=== PATIENT | female | born 1975 | race Caucasian/White ===

== ENCOUNTER 2016-08-04 12:36 | Emergency (ER) | payer OTHER ==
[2016-08-04 13:28] LABS: BILIRUBIN NEGATIVE (NEGATIVE); BLOOD NEGATIVE Ery/uL (NEGATIVE); CLARITY CLEAR (CLEAR); COLOR YELLOW (YELLOW); GLUCOSE (U) NORMAL (NORMAL); KETONE (U) NEGATIVE (NEGATIVE); LEUKOCYTES NEGATIVE Leu/uL (NEGATIVE); NITRITE NEGATIVE (NEGATIVE); PROTEIN NEGATIVE (NEGATIVE); SPECIFIC GRAVITY 1.015 (1.001-1.030); UROBILINOGEN 0.2 mg/dL (0.2-1.0)
[2016-08-04 16:36] LABS: BASOPHIL 0.5 % (0-2); EOSINOPHIL 2.6 % (0-5); HGB 12.7 g/dl (12.5-16.0); LYMPHOCYTE 35.4 % (15-48); MCH 29.1 pg (25.0-31.0); MCHC 33.4 g/dL (32.0-36.0); MCV 87.2 fL (78.0-100.0); MONOCYTE 5.8 % (0-12); MPV 9.5 fL (6.0-9.5); NEUTROPHIL 55.7 % (41-80); PLT 356 K/uL (150-400); RBC 4.36 M/uL (4.20-5.40); RDW 13.7 % (11.5-14.0); WBC 11.1 K/uL (4.0-10.5)
[2016-08-04 16:53] LABS: ALBUMIN 4.4 g/dL (3.5-5.0); BILIRUBIN - TOTAL 0.3 mg/dL (0.1-1.0); CREATININE 0.6 mg/dL (0.5-1.0); GLOBULIN (CALCULATION) 2.8 g/dL (2.2-4.2); POTASSIUM 3.6 mmol/L (3.5-5.1); TOTAL PROTEIN 7.2 g/dL (6.4-8.3)
== END 2016-08-04 20:45 | disposition home or self-care (01) ==
LOC: FER 12:36
PROVIDERS: Emergency Medicine
DX: R10.31 Right lower quadrant pain (principal); E03.9 Hypothyroidism, unspecified; Z87.442 Personal history of urinary calculi; Z91.041 Radiographic dye allergy status; Z79.899 Other long term (current) drug therapy
CPT/HCPCS: 36415; 80053; 81003; 82150; 83690; 85025; J1170; J2405; Q9967